=== PATIENT | male | born 1955 | race Two or more races ===

== ENCOUNTER 2024-05-25 05:10 | Day surgery (SDC) | payer OTHER ==
[~2024-05-25] VITALS: Ht 167.6 cm; Wt 49.4 kg
[~2024-05-25 05:10] MED LIST: FAMOTIDINE40 MG PO; INTESTINEX680 M1 PO; METAMUCIL POWD575 G1 PO; Neurin-Sl Tablet Sl SL; ZOFRAN8 MG PO
[2024-05-25] MEDS ORDERED: BUPIVACAINE HCL/MPF 0.5% 30ML VIAL ONE (07:45)
[2024-05-25] MEDS ORDERED: HEPARIN SODIUM,PORCINE 500 UNITS/5 ML VIAL IV ONE (07:45)
[2024-05-25] MEDS ORDERED: CEFAZOLIN SODIUM 1,000 MG VIAL ONE (07:45)
[2024-05-25] MEDS ORDERED: TRAM1TAB98 PO (09:42)
== END 2024-05-25 12:55 | disposition home or self-care (01) ==
LOC: CIR.AMB 05:10
PROVIDERS: ATTEND Surgery
DX: C20 Malignant neoplasm of rectum (principal)
CPT/HCPCS: 36561; C1751